=== PATIENT | female | born 1985 | race Caucasian/White ===

== ENCOUNTER 2021-06-06 16:39 | Inpatient (IN) ==
[2021-06-06] MEDS ORDERED: Buffered Lidocaine 1% SYRIN 1 ml INTRADERM ONE (17:35)
[2021-06-06] MEDS ORDERED: Lactated Ringers 1000 ml BAG 1,000 ML IV ONE (17:35)
[2021-06-06] MEDS ORDERED: Calcium Carb (TUMS) 500 mg CHEW TAB PO PRN (18:11)
[2021-06-06 19:16] LABS: Rapid COVID-19 Molecular Undetected (Undetected)
[2021-06-06 19:48] LABS: Urine Benzodiazepine Screen None Detected (None Detect); Urine Cannabinoids Screen None Detected (None Detect); Urine Opiates Screen None Detected (None Detect)
[2021-06-06] MEDS ORDERED: Calcium Carb (TUMS) 500 mg CHEW TAB PO ONE (21:25)
[2021-06-07] MEDS ORDERED: Oxytocin in LR 20 UNITS/1,000 ML BAG IVPB SCH ×2 (01:00→05:39)
[2021-06-07 03:43] LABS: ABS Lymphocytes 1.8 10^3/ul (1.0-4.8); ABS Monocytes 0.8 10^3/ul (0-0.8); ABS Neutrophils 7.2 10^3/ul (1.5-7.7); Eosinophil % 0.4 %; Hematocrit 37 % (35-47); Hemoglobin 12.7 g/dL (12.0-16.0); Lymphocyte % 18.1 %; Mean Corpuscular HGB Conc 35 g/dL (31-36); Mean Corpuscular Hemoglobin 33 pg (27-31); Mean Corpuscular Volume 95 fL (80-97); Mean Platelet Volume 10.4 fL (7.4-10.4); Platelet Count 147 10^3/uL (150-450); Red Blood Count 3.86 10^6 /uL (3.70-4.87); Red Cell Distribution Width 13 % (10-15); White Blood Count 9.9 10^3/uL (3.5-10.8)
[2021-06-07] MEDS ORDERED: Methylergonovine 0.2 mg AMPULE 1 ml AMP IM ONE (05:42)
[2021-06-07] MEDS ORDERED: Lidocaine 1% VIAL 10 MG/ML VIAL ONE (05:54)
[2021-06-07] MEDS ORDERED: Methylergonovine 0.2 mg AMPULE 1 ml AMP ONE (05:55)
[2021-06-07] MEDS ORDERED: fentaNYL 100 mcg/2 ml 50 MCG/ML VIAL ONE (06:04)
[2021-06-07] MEDS ORDERED: fentaNYL 100 mcg/2 ml 50 MCG/ML VIAL IV SLOW PU PRN (06:05)
[2021-06-07] MEDS ORDERED: Dibucaine 1% OINT 28.35 GM TUBE PR PRN (06:51)
[2021-06-07] MEDS ORDERED: Witch Hazel PAD JAR TOPICAL PRN (06:51)
[2021-06-07] MEDS ORDERED: Lactated Ringers 1000 ml BAG 1,000 ML IV SCH (07:00)
[2021-06-08 07:01] LABS: ABS Eosinophils 0.1 10^3/ul (0-0.6); ABS Lymphocytes 1.7 10^3/ul (1.0-4.8); ABS Neutrophils 7.8 10^3/ul (1.5-7.7); Eosinophil % 0.6 %; Hematocrit 31 % (35-47); Hemoglobin 11.1 g/dL (12.0-16.0); Lymphocyte % 15.8 %; Mean Corpuscular HGB Conc 36 g/dL (31-36); Mean Corpuscular Hemoglobin 34 pg (27-31); Mean Corpuscular Volume 96 fL (80-97); Mean Platelet Volume 9.7 fL (7.4-10.4); Platelet Count 131 10^3/uL (150-450); Red Blood Count 3.24 10^6 /uL (3.70-4.87); Red Cell Distribution Width 13 % (10-15); White Blood Count 10.5 10^3/uL (3.5-10.8)
[2021-06-08 08:16] VITALS: BP 110/68
== END 2021-06-08 12:40 | disposition home or self-care (01) | DRG 560 ==
LOC: MCHOBOUT 16:39 → MCHOB 17:38
PROVIDERS: ADMIT Advanced Practice Midwife; ATTEND Advanced Practice Midwife